=== PATIENT | female | born 1930 | race Hispanic/Latino ===

== ENCOUNTER 2017-09-22 08:28 | Observation (INO) | payer MEDICARE ==
[~2017-09-22] VITALS: Ht 154.9 cm; Wt 57.4 kg
[~2017-09-22 08:28] MED LIST: ACET-2900 PO; ALPR0.25 PO; ANUSHCS PR; ASPI-1005 PO; BENZ200C53 PO; BISA5TAB12 PO; BUDE10.2 IH; CLON0.1T PO; FOLI1TAB85 PO; FURO-152 PO; GABA100C PO; GUAIFDM PO; LACT10SO PO; LEVO500T2 PO; LISI-617 PO; MAALOX MAX PO; MECL-129 PO; MIRT7.5T11 PO; ONDA4TAB4 PO; POLY17PO4 PO; SIMV10TA6 PO; SUCR1TAB28 PO; WARF2TAB57 PO; vilazodone PO
[2017-09-22 09:39] LABS: BASOPHILS % (AUTO) 0.5 % (0.0-5.0); EOSINOPHILS % (AUTO) 6.7 % (0.0-8.0); HEMATOCRIT 36.7 % (36-48); LYMPHOCYTES % (AUTO) 21.7 % (21.0-51.0); MEAN CORPUSCULAR HEMOGLOBIN 21.8 pg (27.0-33.0); MEAN CORPUSCULAR HGB CONC 30.4 g/dL (32.0-36.0); MEAN CORPUSCULAR VOLUME 71.8 fL (79-99); MONOCYTES % (AUTO) 10.4 % (3.0-13.0); NEUTROPHILS % (AUTO) 60.7 % (40.0-77.0); PLATELET COUNT (AUTO) 260 K/uL (130-400); RED BLOOD CELL COUNT(AUTO) 5.11 MIL/uL (4.00-5.50); RED CELL DISTRIBUTION WIDTH 21.4 % (11.0-15.5); WHITE BLOOD COUNT (AUTO) 7.4 K/uL (4.8-10.8)
[2017-09-22 09:53] LABS: CREATININE 0.6 mg/dL (0.5-1.5); POTASSIUM 4.8 mmol/L (3.5-5.1)
[2017-09-22 10:08] LABS: ALBUMIN 3.1 g/dL (3.5-5.0); BILIRUBIN,TOTAL 0.3 mg/dL (0.2-1.0); CREATINE KINASE MB 1.3 ng/mL (0.5-3.6); TOTAL PROTEIN, SERUM 7.5 g/dL (6.0-8.3)
[2017-09-22] MEDS ORDERED: GUAIFENESIN-DM 200/20 MG 10 ML PO PRN (12:30)
[2017-09-22] MEDS ORDERED: ONDANSETRON HCL 4 MG/2 ML VIAL IV PRN (12:30)
[2017-09-22] MEDS ORDERED: LACTULOSE 20 GM/30 ML UDCUP PO PRN (12:30)
[2017-09-22] MEDS ORDERED: ACETAMINOPHEN 325 MG TAB PO PRN ×2 (12:30)
[2017-09-22 13:01] LABS: APPEARANCE,URINE CLEAR (CLEAR); BILIRUBIN,URINE NEGATIVE (NEGATIVE); COLOR,URINE YELLOW (YELLOW); GLUCOSE, URINE (UA) NEGATIVE (NEGATIVE); KETONES,URINE NEGATIVE (NEGATIVE); LEUKOCYTE ESTERASE ,URINE TRACE (NEGATIVE); NITRATE,URINE POSITIVE (NEGATIVE); OCCULT BLOOD,URINE TRACE-INTACT (NEGATIVE); PROTEIN,URINE NEGATIVE (NEGATIVE); UROBILINOGEN,URINE 0.2 mg/dL (0.2-1.0)
[2017-09-22 13:20] LABS: SQUAMOUS EPITHELIAL CELL,UR Few /LPF (0-2)
[2017-09-22 13:21] LABS: BACTERIA,URINE Moderate /HPF (None Seen); RBC,URINE 0-1 /HPF (0-1)
[2017-09-22] MEDS: IPRATROPIUM/ALBUTEROL SULFATE 3 ML SOLUTION IH SCH (18:14)
[2017-09-22 18:45] VITALS: BP 178/82
[2017-09-22 19:50] VITALS: BP 177/81
[2017-09-22] MEDS ORDERED: TRAM50TA4 PO (19:55)
[2017-09-22] MEDS ORDERED: CYCL30DR OP (19:55)
[2017-09-22] MEDS ORDERED: FAMO-136 PO (19:55)
[2017-09-22] MEDS ORDERED: TRAZ-144 PO (19:55)
[2017-09-22] MEDS ORDERED: BISA-72 PO (19:55)
[2017-09-22] MEDS ORDERED: FLUT1BLS IH (19:55)
[2017-09-22] MEDS ORDERED: DONE5TAB2 PO (19:55)
[2017-09-22] MEDS: FAMOTIDINE/PF 20 MG/2 ML VIAL IV SCH (20:57)
[2017-09-22] MEDS ORDERED: HYDRALAZINE HCL 20 MG/ML VIAL IV PRN (22:00)
[2017-09-22] MEDS ORDERED: HYDRALAZINE HCL 20 MG/ML VIAL IV ONE (22:05)
[2017-09-22] MEDS: LORAZEPAM 2 MG/ML 1 ML VIAL IVP PRN (22:09)
[2017-09-22 23:25] VITALS: BP 131/109
[2017-09-23] MEDS: IPRATROPIUM/ALBUTEROL SULFATE 3 ML SOLUTION IH SCH ×3 (00:23→11:53)
[2017-09-23 03:40] VITALS: BP 125/52
[2017-09-23] MEDS: LORAZEPAM 2 MG/ML 1 ML VIAL IVP PRN ×2 (03:56→09:43)
[2017-09-23 08:00] VITALS: BP 135/63
[2017-09-23] MEDS ORDERED: BISACODYL 5 MG TABLET.DR PO PRN (08:45)
[2017-09-23] MEDS ORDERED: ASPIRIN 81MG TAB.CHEW PO SCH (09:00)
[2017-09-23] MEDS ORDERED: BISACODYL 5 MG TABLET.DR PO SCH (09:00)
[2017-09-23] MEDS ORDERED: DONEPEZIL HCL 5 MG TAB PO SCH (09:00)
[2017-09-23] MEDS ORDERED: GABAPENTIN 100 MG CAPSULE PO SCH (09:00)
[2017-09-23] MEDS ORDERED: FUROSEMIDE 20 MG TABLET PO SCH (09:00)
[2017-09-23] MEDS ORDERED: FAMOTIDINE 20MG TAB 20 MG TAB PO SCH (09:00)
[2017-09-23] MEDS ORDERED: ALPRAZOLAM 0.25 MG TABLET PO SCH (09:00)
[2017-09-23] MEDS ORDERED: CYCLOSPORINE OP SCH (09:00)
[2017-09-23] MEDS: FAMOTIDINE/PF 20 MG/2 ML VIAL IV SCH ×2 (09:00→09:54)
[2017-09-23] MEDS ORDERED: BUDESONIDE 0.5 MG/2 ML INH IH SCH (18:00)
== END 2017-09-23 15:25 ==
LOC: EDH 08:28 → EDHIP 12:22 → 3DH 18:20
PROVIDERS: ADMIT Family Medicine; ATTEND Family Medicine
DX: J96.10 Chronic respiratory failure, unspecified whether with hypoxia or hypercapnia (principal); I13.10 Hypertensive heart and chronic kidney disease without heart failure, with stage 1 through stage 4 chronic kidney disease, or unspecified chronic kidney disease; N18.9 Chronic kidney disease, unspecified; E78.5 Hyperlipidemia, unspecified; D64.9 Anemia, unspecified; K21.9 Gastro-esophageal reflux disease without esophagitis; F03.90 Unspecified dementia, unspecified severity, without behavioral disturbance, psychotic disturbance, mood disturbance, and anxiety; Z86.718 Personal history of other venous thrombosis and embolism; Z86.73 Personal history of transient ischemic attack (TIA), and cerebral infarction without residual deficits; Z99.81 Dependence on supplemental oxygen
CPT/HCPCS: 36415; 71045; 78580; 80053; 81001; 82550; 82553; 84484; 85025; 93005; 93970; 94640 ×4; 94664; 96374; 96375; 96376; 99285; A9540 ×2; G0378 ×27; J0360; J2060 ×3; J3490 ×2

== ENCOUNTER 2018-01-10 18:24 | Emergency (ER) | payer MEDICARE ==
[~2018-01-10 18:24] MED LIST changes: +BISA-72 PO; -BUDE10.2 IH; +CYCL30DR OP; +DONE5TAB2 PO; +FAMO-136 PO; +FLUT1BLS IH; -LEVO500T2 PO; -MAALOX MAX PO; -MIRT7.5T11 PO; -SUCR1TAB28 PO; +TRAM50TA4 PO; +TRAZ-185 PO; -WARF2TAB57 PO; -vilazodone PO
[2018-01-10 19:21] LABS: BASOPHILS % (AUTO) 0.9 % (0.0-5.0); EOSINOPHILS % (AUTO) 6.1 % (0.0-8.0); HEMATOCRIT 31.9 % (36-48); LYMPHOCYTES % (AUTO) 22.7 % (21.0-51.0); MEAN CORPUSCULAR HEMOGLOBIN 23.2 pg (27.0-33.0); MEAN CORPUSCULAR HGB CONC 31.7 g/dL (32.0-36.0); MEAN CORPUSCULAR VOLUME 73.1 fL (79-99); MONOCYTES % (AUTO) 11.2 % (3.0-13.0); NEUTROPHILS % (AUTO) 59.1 % (40.0-77.0); NUCLEATED RED BLOOD CELLS 0.1 % (0.0-0.19); PLATELET COUNT (AUTO) 338 K/uL (130-400); RED BLOOD CELL COUNT(AUTO) 4.37 MIL/uL (4.00-5.50); RED CELL DISTRIBUTION WIDTH 19.1 % (11.0-15.5); WHITE BLOOD COUNT (AUTO) 6.1 K/uL (4.8-10.8)
[2018-01-10 19:35] LABS: APPEARANCE,URINE CLOUDY (CLEAR); BILIRUBIN,URINE NEGATIVE (NEGATIVE); COLOR,URINE YELLOW (YELLOW); GLUCOSE, URINE (UA) NEGATIVE (NEGATIVE); KETONES,URINE NEGATIVE (NEGATIVE); LEUKOCYTE ESTERASE ,URINE SMALL (NEGATIVE); NITRATE,URINE NEGATIVE (NEGATIVE); OCCULT BLOOD,URINE NEGATIVE (NEGATIVE); PROTEIN,URINE NEGATIVE (NEGATIVE); UROBILINOGEN,URINE 0.2 mg/dL (0.2-1.0)
[2018-01-10 19:42] LABS: POTASSIUM 4.2 mmol/L (3.5-5.1)
[2018-01-10 19:44] LABS: INR 0.95 (0.85-1.15); PARTIAL THROMBOPLASTIN TIME 24.7 SEC (26.3-35.5)
[2018-01-10 19:49] LABS: B-TYPE NATRIURETIC PEPTIDE 26 pg/mL (0-100)
[2018-01-10 19:58] LABS: RBC,URINE 0-1 /HPF (0-1)
[2018-01-10 20:00] LABS: BACTERIA,URINE Moderate /HPF (None Seen)
[2018-01-10 20:01] LABS: SQUAMOUS EPITHELIAL CELL,UR Rare /HPF (0-2)
[2018-01-10 20:10] LABS: ALBUMIN 3.2 g/dL (3.5-5.0); BILIRUBIN,DIRECT 0.1 mg/dL (0.0-0.3); BILIRUBIN,TOTAL 0.2 mg/dL (0.2-1.0); CREATINE KINASE MB 4.1 ng/mL (0.5-3.6); TOTAL PROTEIN, SERUM 7.1 g/dL (6.0-8.3)
[2018-01-10] MEDS ORDERED: SODIUM CHLORIDE 0.9% 50 ML IV ONE (21:06)
[2018-01-10] MEDS ORDERED: CEFTRIAXONE SODIUM 1 GM ONE (21:06)
== END 2018-01-11 01:00 | disposition home or self-care (01) ==
LOC: EDH 18:24
DX: N39.0 Urinary tract infection, site not specified (principal); I48.91 Unspecified atrial fibrillation; K21.9 Gastro-esophageal reflux disease without esophagitis; E78.5 Hyperlipidemia, unspecified
CPT/HCPCS: 36415; 71045; 80048; 80076; 81001; 82550; 82553; 83880; 84484; 85025; 85610; 85730; 93005; 96374; 99285; J0696

== ENCOUNTER 2018-09-10 09:38 | Inpatient (IN) | payer MEDICARE ==
[~2018-09-10] VITALS: Ht 144.8 cm; Wt 61.0 kg
[~2018-09-10 09:38] MED LIST changes: -DONE5TAB2 PO; +DONE5TAB3 PO
[2018-09-10] MEDS ORDERED: DEXAMETHASONE SOD PHOSPHATE 10MG/ML 1ML VIAL ONE (10:18)
[2018-09-10] MEDS ORDERED: IPRATROPIUM/ALBUTEROL SULFATE 3 ML SOLUTION IH ONE (10:21)
[2018-09-10] MEDS ORDERED: ACETAMINOPHEN 650 MG SUPPOSITORY RC ONE (10:25)
[2018-09-10 10:27] LABS: APPEARANCE,URINE Cloudy (CLEAR); BILIRUBIN,URINE Negative (NEGATIVE); COLOR,URINE Yellow (YELLOW); GLUCOSE, URINE (UA) Negative (NEGATIVE); KETONES,URINE Negative (NEGATIVE); LEUKOCYTE ESTERASE ,URINE Large (NEGATIVE); NITRATE,URINE Negative (NEGATIVE); OCCULT BLOOD,URINE Trace (NEGATIVE); PROTEIN,URINE POS 1+ (NEGATIVE)
[2018-09-10 10:39] LABS: BACTERIA,URINE Moderate /HPF (None Seen); HYALINE CASTS, URINE 0-1 /LPF (0-1 /LPF); RBC,URINE 0-1 /HPF (0-1); SQUAMOUS EPITHELIAL CELL,UR Few /HPF (0-2)
[2018-09-10 10:53] LABS: BASOPHILS % (AUTO) 0.4 % (0.0-5.0); EOSINOPHILS % (AUTO) 0.1 % (0.0-8.0); HEMATOCRIT 30.2 % (36-48); LYMPHOCYTES % (AUTO) 5.6 % (21.0-51.0); MEAN CORPUSCULAR HEMOGLOBIN 21.9 pg (27.0-33.0); MEAN CORPUSCULAR HGB CONC 30.4 g/dL (32.0-36.0); MONOCYTES % (AUTO) 10.3 % (3.0-13.0); NEUTROPHILS % (AUTO) 83.6 % (40.0-77.0); PLATELET COUNT (AUTO) 288 K/uL (130-400); RED CELL DISTRIBUTION WIDTH 22.8 % (11.0-15.5); WHITE BLOOD COUNT (AUTO) 9.2 K/uL (4.8-10.8)
[2018-09-10 11:01] LABS: CARBON DIOXIDE 34 mmol/L (21-32); CHLORIDE 101 mmol/L (101-111); CREATININE 1.2 mg/dL (0.5-1.5); GLOMERULAR FILTR. RATE CALC 45 mL/min (>60); GLUCOSE,RANDOM 152 mg/dL (70-105); POTASSIUM 4.4 mmol/L (3.5-5.1); SODIUM SERUM 141 mmol/L (136-145); UREA NITROGEN, BLOOD 18 mg/dL (7-18)
[2018-09-10 11:11] LABS: ALANINE AMINOTRANSFERASE 9 U/L (12-78); ALBUMIN 2.5 g/dL (3.5-5.0); ASPARTATE AMINOTRANSFERASE 28 U/L (10-37); BILIRUBIN,TOTAL 0.2 mg/dL (0.2-1.0); CREATINE KINASE, TOTAL 360 U/L (21-232); MYOGLOBIN 228 ng/mL (10-92); TOTAL PROTEIN, SERUM 8.2 g/dL (6.0-8.3); TROPONIN I < 0.04 ng/mL (0.00-0.06)
[2018-09-10 11:14] LABS: INR 1.02 (0.85-1.15); PARTIAL THROMBOPLASTIN TIME 30.3 SEC (26.3-35.5); PROTHROMBIN TIME 10.7 SEC (9.6-11.6)
[2018-09-10] MEDS ORDERED: LEVOFLOXACIN 500 MG/D5W 100 ML 100 ML ONE (11:15)
[2018-09-10] MEDS ORDERED: ENOXAPARIN SODIUM 40 MG/0.4 ML SYRINGE SQ ONE (11:41)
[2018-09-10] MEDS ORDERED: ONDANSETRON HCL 4 MG/2 ML VIAL IVP PRN ×2 (12:00→16:00)
[2018-09-10] MEDS ORDERED: SODIUM CHLORIDE 0.9% 100 ML IV ONE (13:46)
[2018-09-10] MEDS ORDERED: ZOSYN 3.375GM+NS 50ML 50 ML IV ONE (13:46)
[2018-09-10] MEDS ORDERED: IPRATROPIUM/ALBUTEROL SULFATE 3 ML SOLUTION IH SCH (14:00)
[2018-09-10] MEDS: LACTATED RINGERS 1000ML 1,000 ML IV SCH (16:00)
[2018-09-10] MEDS ORDERED: ACETAMINOPHEN 650 MG SUPPOSITORY RC PRN (16:00)
[2018-09-10] MEDS ORDERED: ACETAMINOPHEN 325 MG TAB PO PRN (16:00)
[2018-09-10] MEDS ORDERED: VANCOMYCIN PROTOCOL PER PHARMACY IV SCH (16:00)
[2018-09-10] MEDS: METHYLPREDNISOLONE SOD SUCC 40MG/ML 1ML IVP SCH (16:00)
[2018-09-10] MEDS ORDERED: MAGNESIUM 2GM PREMIX 50ML 50 ML IV PRN (16:15)
[2018-09-10] MEDS ORDERED: LIDOCAINE HCL-MPF 1% 2ML VIAL IVP PRN (16:15)
[2018-09-10] MEDS ORDERED: DEXTROSE 50%-WATER 50 ML DISP.SYRIN IV PRN (16:15)
[2018-09-10] MEDS ORDERED: GLUCAGON 1MG KIT 1 MG ML IM PRN (16:15)
[2018-09-10] MEDS ORDERED: POTASSIUM CHLORIDE 20MEQ/100ML 100 ML IV PRN (16:15)
[2018-09-10] MEDS ORDERED: VANCOMYCIN 1GM+NS 250ML 250 ML IV ONE (16:43)
[2018-09-10] MEDS ORDERED: METHYLPREDNISOLONE SOD SUCC 40MG/ML 1ML ONE (16:43)
[2018-09-10] MEDS ORDERED: LACTATED RINGERS 1000ML 1,000 ML IV ONE (18:02)
[2018-09-10] MEDS ORDERED: COMPOUND IV REFRIGERATED 1 EACH IVSOLN MISC PRN (18:15)
[2018-09-10] MEDS: IPRATROPIUM/ALBUTEROL SULFATE 3 ML SOLUTION IH SCH (18:57)
[2018-09-10] MEDS: ZOSYN 3.375GM+NS 50ML 50 ML IV SCH (21:00)
[2018-09-10] MEDS: OSELTAMIVIR PHOSPHATE 75 MG CAP PO SCH (21:00)
[2018-09-10] MEDS ORDERED: OSELTAMIVIR PHOSPHATE 75 MG CAP ONE (21:43)
[2018-09-10 21:49] LABS: CREATINE KINASE, TOTAL 302 U/L (21-232); MYOGLOBIN 234 ng/mL (10-92); TROPONIN I < 0.04 ng/mL (0.00-0.06)
[2018-09-10 22:47] VITALS: BP 96/44
[2018-09-10] MEDS ORDERED: MIRT15TA PO (23:33)
[2018-09-10] MEDS ORDERED: LACT10SO9 PO (23:33)
[2018-09-10] MEDS ORDERED: IPRA3AMP24 IH (23:33)
[2018-09-10] MEDS ORDERED: ALPR1TAB7 PO (23:33)
[2018-09-10 23:45] VITALS: BP 96/44
[2018-09-11] MEDS: IPRATROPIUM/ALBUTEROL SULFATE 3 ML SOLUTION IH SCH ×5 (00:11→23:24)
[2018-09-11 00:40] LABS: CREATINE KINASE, TOTAL 392 U/L (21-232); MYOGLOBIN 370 ng/mL (10-92); TROPONIN I < 0.04 ng/mL (0.00-0.06)
[2018-09-11] MEDS: METHYLPREDNISOLONE SOD SUCC 40MG/ML 1ML IVP SCH ×3 (01:00→16:00)
[2018-09-11 03:53] LABS: BASOPHILS % (AUTO) 0.1 % (0.0-5.0); HEMATOCRIT 24.1 % (36-48); LYMPHOCYTES % (AUTO) 13.5 % (21.0-51.0); MEAN CORPUSCULAR HEMOGLOBIN 21.9 pg (27.0-33.0); MEAN CORPUSCULAR HGB CONC 30.7 g/dL (32.0-36.0); MEAN CORPUSCULAR VOLUME 71.4 fL (79-99); MONOCYTES % (AUTO) 3.5 % (3.0-13.0); NEUTROPHILS % (AUTO) 82.9 % (40.0-77.0); PLATELET COUNT (AUTO) 282 K/uL (130-400); RED BLOOD CELL COUNT(AUTO) 3.38 MIL/uL (4.00-5.50); RED CELL DISTRIBUTION WIDTH 22.9 % (11.0-15.5); WHITE BLOOD COUNT (AUTO) 9.2 K/uL (4.8-10.8)
[2018-09-11 04:01] LABS: ALBUMIN 1.9 g/dL (3.5-5.0); BILIRUBIN,TOTAL 0.1 mg/dL (0.2-1.0); CREATININE 1.2 mg/dL (0.5-1.5); MAGNESIUM 1.8 mg/dL (1.80-2.40); PHOSPHORUS 3.2 mg/dL (2.5-4.9); POTASSIUM 3.9 mmol/L (3.5-5.1); TOTAL PROTEIN, SERUM 6.6 g/dL (6.0-8.3)
[2018-09-11] MEDS: ZOSYN 3.375GM+NS 50ML 50 ML IV SCH ×3 (04:13→21:24)
[2018-09-11 04:15] LABS: B-TYPE NATRIURETIC PEPTIDE 61 pg/mL (0-100)
[2018-09-11 04:20] VITALS: BP 132/70
[2018-09-11] MEDS: LACTATED RINGERS 1000ML 1,000 ML IV SCH ×2 (06:08→18:40)
[2018-09-11 07:00] VITALS: BP 111/50
[2018-09-11 08:34] LABS: CREATINE KINASE, TOTAL 263 U/L (21-232); MYOGLOBIN 165 ng/mL (10-92); TROPONIN I < 0.04 ng/mL (0.00-0.06)
[2018-09-11] MEDS: ENOXAPARIN SODIUM 40 MG/0.4 ML SYRINGE SQ SCH ×2 (09:00→13:54)
[2018-09-11 11:00] VITALS: BP 111/46
--- NOTE | 2018-09-11 12:14 | NUR ---
DYSPHAGIA EVAL COMPLETED. +S/S OF ASPIRATION WITH THIN AND NECTAR-THICK LIQUIDS. RECOMMEND MECHANICAL SOFT/GROUND, HONEY-THICK LIQUIDS; PILLS WHOLE WITH LIQUIDS. PATIENT INFORMATION: Pt IS AN 87 YEAR OLD FEMALE REFERRED FOR A BEDSIDE DYSPHAGIA EVALUATION SECONDARY TO POSSIBLE ASPIRATION. Pt AAOX2 AND COOPERATIVE. SON AT BEDSIDE AT THE TIME OF THE EVALUATION. SON REPORTS Pt WAS PREVIOUSLY ON THICKENER AT THE [facility]. Pt CURRENTLY ADMITTED SECONDARY TO UTI, SEPSIS, ALTERED MENTAL STATUS, AND HOSPITAL ACQUIRED PNEUMONIA. Pt HAS A PAST MEDICAL HISTORY SIGNIFICANT FOR DEMENTIA, HYPERTENSION, UTI, PNEUMONIA, DEPRESSION, CVA, CHRONIC HYPOXEMIC RESPIRATORY FAILURE ON HOME O2 AND CHRONIC KIDNEY DISEASE. EVALUATION: Pt PRESENTS WITH MILD ORAL AND MODERATE-SEVERE PHARYNGEAL DYSPHAGIA CAUSED BY DECREASED ORAL MOTOR STRENGTH, DECREASED LARYNGEAL ELEVATION/EXCURSION, DELAYED PHARYNGEAL RESPONSE TIME, DECREASED PHARYNGEAL PRESSURE GENERATION, E/B DECREASED ROTARY MOTION DURING MASTICATION, MILD RESIDE IN ORAL CAVITY, MULTIPLE SWALLOWS, EFFORTFUL SWALLOW, RESULTING IN S/S OF ASPIRATION OF DELAYED COUGH WITH THIN LIQUIDS AND NECTAR-THICK LIQUIDS. RECOMMENDATIONS: 1. MECHANICAL SOFT/GROUND, HONEY-THICK LIQUIDS; PILLS WHOLE WITH LIQUIDS. 2. COMPENSATORY STRATEGIES: *SEATED AT 90 DEGREES *SLOW RATE *ASSIST WITH FEEDINGS 3. CONTINUED SKILLED SPEECH THERAPY IS RECOMMENDED FOR MEAL OBSERVATIONS. LTG1: Pt WILL TOLERATE LEAST RESTRICTIVE DIET AND MAINTAIN NUTRITION/HYDRATION WITH NO S/S OF ASPIRATION. STG1: Pt WILL TOLERATE MECHANICAL SOFT/GROUND, HONEY-THICK LIQUIDS DIET WITH NO S/S OF ASPIRATION. STG2: Pt/FAMILY/STAFF WITH USE COMPENSATORY STRATEGIES WITH 100% ACCURACY. STG3: Pt WILL PARTICIPATE IN MBSS. G-CODES SWALLOWING: [id number] Addendum: 09/11/18 at 1236 by JT STERLING, [facility] Amended: Links added.
[2018-09-11 16:00] VITALS: BP 157/68
[2018-09-11] MEDS: VANCOMYCIN 0.75 GM in SODIUM CHLORIDE 0.9% 250 ML IV SCH (16:58)
[2018-09-11 19:00] VITALS: BP 107/51
--- NOTE | 2018-09-11 19:30 | NUR ---
Received bedside report pt. is on droplet precaution with ongoing LR @ 75ml/hr.Pt. is also on Fall and aspiration precaution.
[2018-09-11] MEDS: OSELTAMIVIR PHOSPHATE 75 MG CAP PO SCH (21:24)
[2018-09-11 23:00] VITALS: BP 119/86
[2018-09-12] MEDS: METHYLPREDNISOLONE SOD SUCC 40MG/ML 1ML IVP SCH ×2 (00:34→23:23)
[2018-09-12 03:00] VITALS: BP 143/67
[2018-09-12 04:46] LABS: HEMATOCRIT 25.8 % (36-48); MEAN CORPUSCULAR VOLUME 70.8 fL (79-99); PLATELET COUNT (AUTO) 338 K/uL (130-400); RED BLOOD CELL COUNT(AUTO) 3.64 MIL/uL (4.00-5.50); RED CELL DISTRIBUTION WIDTH 22.7 % (11.0-15.5); WHITE BLOOD COUNT (AUTO) 10.8 K/uL (4.8-10.8)
[2018-09-12 04:57] LABS: CREATININE 1.2 mg/dL (0.5-1.5); MAGNESIUM 1.8 mg/dL (1.80-2.40)
[2018-09-12] MEDS: ZOSYN 3.375GM+NS 50ML 50 ML IV SCH ×2 (05:25→21:08)
[2018-09-12] MEDS: IPRATROPIUM/ALBUTEROL SULFATE 3 ML SOLUTION IH SCH ×4 (05:55→22:57)
--- NOTE | 2018-09-12 07:52 | NUR ---
Bedside report given to incoming NOD using SBAR,all questions answered.No significant change in condition.
[2018-09-12 08:13] VITALS: BP 143/68
[2018-09-12] MEDS: ENOXAPARIN SODIUM 40 MG/0.4 ML SYRINGE SQ SCH ×2 (09:00)
--- NOTE | 2018-09-12 11:29 | NUR ---
DC PLAN PATIENT INTERMEDIATE RESIDENT OF [facility]. CONSENT GIVEN TO RETURN TO FACILITY. CALLED SPOKE TO HARDIK SENDY OKAY TO RETURN NO PASRR NEEDED. Addendum: 09/12/18 at 1130 by LESLEY MOHR RN CM Amended: Links added.
[2018-09-12 12:05] VITALS: BP 133/76
[2018-09-12] MEDS: VANCOMYCIN 0.75 GM in SODIUM CHLORIDE 0.9% 250 ML IV SCH (16:00)
[2018-09-12 16:45] VITALS: BP 163/73
[2018-09-12 19:44] VITALS: BP 166/75
[2018-09-12] MEDS: OSELTAMIVIR PHOSPHATE 75 MG CAP PO SCH (21:09)
--- NOTE | 2018-09-12 22:27 | NUR ---
CALLED MARINE TECH. AND NOTIFIED HIM OF CHANGE OF STATUS. DECREASING IN OXYGEN LEVEL AND INCREASED SECRETIONS.
--- NOTE | 2018-09-12 22:30 | NUR ---
CALLED SON JEFFERSON KRUSE RELATING TO PT CHANGE IN STATUS. SHE WAS DECREASING IN OXYGEN LEVEL AND HAVING INCREASED HEART RATE. NOTIFED SON. HE STATED TO UPDATE HIM WITH ANY OTHER STATUS CHANGES.
--- NOTE | 2018-09-12 22:45 | NUR ---
PT REQUESTING FOR SON TO COME IN TO SEE HER HILLARY. CALLED SON AGAIN, AND NOTIFIED HIM OF PT REQUEST. UPDATED HIM ON HER STATUS. STABLE AT THE MOMENT. INCREASED OXYGEN LEVEL. AND WILL BE PLACED ON BIPAP MACHINE.
[2018-09-12 23:00] VITALS: BP 124/89
[2018-09-13] VITALS (8 sets, daily range): BP systolic 67–108; BP diastolic 24–56
--- NOTE | 2018-09-13 03:30 | NUR ---
PAGED DR. CARLSON RELATING TO PT STATUS CHANGE. BP 73/24, HR 133, AND RESP 30'S. T99.7 AXILIARY. REP DISTRESS NOTED, SO WAS PLACED ON BIPAP EARLIER. SON AWARE. CAME TO VISIT PT. DR. Hobson STATED IF PT WAS RESTLESS TO ADMINISTER ATIVAN 2MG IV PUSH PRN.
--- NOTE | 2018-09-13 03:33 | NUR ---
PAGED [employer]. SPOKE TO AMBER BEST ABOUT PT STATUS CHANGE. BP 73/24. HR 120-130. RESP 30'S. INFORMED OF BIPAP PLACEMENT. AMBER ASKED IF FAMILLY AWARE. STATES YES, AND THAT SON JEFFERSON CAME IN TO SEE HIS MOTHER. SHE WAS STABLE DURING HIS TIME HERE. NEW ORDERS FOR STAT CBC,BMP, BNP, AND CXR.
[2018-09-13] MEDS ORDERED: LORAZEPAM 2 MG/ML 1 ML VIAL ONE (03:43)
[2018-09-13] MEDS ORDERED: LORAZEPAM 2 MG/ML 1 ML VIAL IVP PRN (03:45)
[2018-09-13 04:42] LABS: BASOPHILS % (AUTO) 0.3 % (0.0-5.0); EOSINOPHILS % (AUTO) 0.1 % (0.0-8.0); HEMATOCRIT 28.5 % (36-48); LYMPHOCYTES % (AUTO) 1.5 % (21.0-51.0); MEAN CORPUSCULAR HEMOGLOBIN 21.5 pg (27.0-33.0); MEAN CORPUSCULAR HGB CONC 29.8 g/dL (32.0-36.0); MEAN CORPUSCULAR VOLUME 72.2 fL (79-99); MONOCYTES % (AUTO) 7.5 % (3.0-13.0); NEUTROPHILS % (AUTO) 90.6 % (40.0-77.0); NUCLEATED RED BLOOD CELLS 1.1 % (0.0-0.19); PLATELET COUNT (AUTO) 438 K/uL (130-400); RED BLOOD CELL COUNT(AUTO) 3.94 MIL/uL (4.00-5.50); RED CELL DISTRIBUTION WIDTH 22.9 % (11.0-15.5); WHITE BLOOD COUNT (AUTO) 12.9 K/uL (4.8-10.8)
[2018-09-13 04:53] LABS: CREATININE 1.6 mg/dL (0.5-1.5); POTASSIUM 4.6 mmol/L (3.5-5.1)
[2018-09-13] MEDS: ZOSYN 3.375GM+NS 50ML 50 ML IV SCH (05:39)
[2018-09-13] MEDS: IPRATROPIUM/ALBUTEROL SULFATE 3 ML SOLUTION IH SCH ×4 (06:24→23:34)
[2018-09-13] MEDS: ENOXAPARIN SODIUM 40 MG/0.4 ML SYRINGE SQ SCH ×2 (08:46→08:49)
[2018-09-13] MEDS: METHYLPREDNISOLONE SOD SUCC 40MG/ML 1ML IVP SCH ×2 (08:49→16:55)
[2018-09-13 13:52] LABS: ABG BASE EXCESS 1.6 mmol/L (-2.0-3.0); ABG HCO3 29.8 mmol/L (21.0-28.0); ABG OXYGEN SATURATION 98.6 % (95.0-99.0); ABG PCO2 62 mmHg (32-45)
[2018-09-13] MEDS: MEROPENEM 1 GM VIAL IVP SCH (15:08)
--- NOTE | 2018-09-13 16:30 | NUR ---
Nutrition intervention: Nutrition notification for TF recommendations. Pt admitted for UTI,Sepsis currently on regular diet therapy. S/p PACKAGING DESIGNER evaluation with HTL and mechanical ground texture recommendations. As per pt's nurse, pt with poor po intake d/t confusion and poor awareness. Recommendations: Jevity 1.5 @ 35ml/hr, 135ml Q4H. RD to continue monitoring pt's nutritional status for continued intervention. Please consult RD as additional nutrition concerns arise. Addendum: 09/13/18 at [address] Amended: Links added.
[2018-09-13] MEDS ORDERED: VANCOMYCIN 1GM+NS 250ML 250 ML IV SCH (17:00)
--- NOTE | 2018-09-13 17:00 | NUR ---
Nasogastric tube 16 kiswahili inserted. Patient removed and stated did not want nasogastric tube inserted. Son aware and in agreement.
--- NOTE | 2018-09-13 21:00 | NUR ---
PT HAS SHOWN IMPROVEMENT SINCE LAST NIGHT. SHE APPEARS STABLE, NO RESP DISTRESS NOTED. CONTINUES ON BIPAP. NO RESTLESSNESS NOTED. NEW IV TO RIGHT HAND. CONTINUES ON IV ABTS. PULLED OUT NG TUBE EARLIER. WILL NOT BE REINSERTING. SON AWARE. CRACKLES BILATERALLY. UPPER AND LOWER LOBES. HYPOTENSION NOTED. DOCTORS ARE AWARE. Addendum: 09/13/18 at 9204 by MILES CHAPA RN RN PT IS EDEMATOUS. IS ABLE TO TAKE MEDICATIONS WITH SMALL AMOUNT OF APPLESAUCE AND CRUSHED. THICKENED WATER.
[2018-09-13] MEDS: OSELTAMIVIR PHOSPHATE 75 MG CAP PO SCH (21:25)
[2018-09-14] MEDS: MEROPENEM 1 GM VIAL IVP SCH ×2 (00:26→13:31)
[2018-09-14] MEDS: METHYLPREDNISOLONE SOD SUCC 40MG/ML 1ML IVP SCH ×4 (00:26→23:56)
[2018-09-14 03:35] VITALS: BP 98/54
--- NOTE | 2018-09-14 03:43 | NUR ---
PT STABLE, BP HAS BEEN AT 90/50'S. BIPAP IN PLACE. NO DISTRESS NOTED.
[2018-09-14 03:51] LABS: BASOPHILS % (AUTO) 0.3 % (0.0-5.0); HEMATOCRIT 25.7 % (36-48); LYMPHOCYTES % (AUTO) 14.7 % (21.0-51.0); MEAN CORPUSCULAR HEMOGLOBIN 21.9 pg (27.0-33.0); MEAN CORPUSCULAR HGB CONC 30.2 g/dL (32.0-36.0); MEAN CORPUSCULAR VOLUME 72.5 fL (79-99); MONOCYTES % (AUTO) 5.2 % (3.0-13.0); NEUTROPHILS % (AUTO) 79.8 % (40.0-77.0); NUCLEATED RED BLOOD CELLS 0.1 % (0.0-0.19); PLATELET COUNT (AUTO) 332 K/uL (130-400); RED BLOOD CELL COUNT(AUTO) 3.55 MIL/uL (4.00-5.50); RED CELL DISTRIBUTION WIDTH 23.3 % (11.0-15.5); WHITE BLOOD COUNT (AUTO) 8.5 K/uL (4.8-10.8)
[2018-09-14 04:01] LABS: CREATININE 3.2 mg/dL (0.5-1.5); POTASSIUM 4.4 mmol/L (3.5-5.1)
[2018-09-14] MEDS: IPRATROPIUM/ALBUTEROL SULFATE 3 ML SOLUTION IH SCH ×4 (06:29→23:05)
[2018-09-14 08:02] VITALS: BP 106/63
--- NOTE | 2018-09-14 09:10 | NUR ---
THERAPEUTIC TRIALS COMPLETED. Pt RAISED TO 90 DEGREES IN BED. Pt PARTICIPATED IN THERAPEUTIC TRIALS OF PUREED AND HONEY-THICK CONSISTENCY. Pt WITH MILDLY DELAYED PHARYNGEAL RESPONSE TRIGGER WITH NO S/S OF ASPIRATION. PER NURSE AID Pt TOLERATED BREAKFAST. RECOMMEND CONTINUED PUREED, HONEY-TICK LIQUIDS. SON ENTERED ROOM AT THE END OF THE SESSION. CHIEF STRATEGY OFFICER REVIEWED SAFE SWALLOW PRECAUTIONS. ALL QUESTIONS ANSWERED AT THIS TIME. Addendum: 09/14/18 at 1214 by JT STERLING, [facility] Amended: Links added.
[2018-09-14] MEDS: ENOXAPARIN SODIUM 40 MG/0.4 ML SYRINGE SQ SCH (10:05)
[2018-09-14 11:56] VITALS: BP 105/67
[2018-09-14] MEDS ORDERED: LINEZOLID 600 MG/ISO-OSM 300 ML IV SCH (13:15)
--- NOTE | 2018-09-14 13:58 | NUR ---
DR. CARLSON IN ROOM SPEAKING WITH PT.'S SON AT BEDSIDE EXPLAINING PLAN OF CARE AND ANSWERING QUESTIONS.
[2018-09-14] MEDS ORDERED: PHARMACY COMMUNICATION MISC SCH (14:00)
[2018-09-14] MEDS ORDERED: MEROPENEM 1 GM VIAL IVP SCH (14:04)
[2018-09-14] MEDS: MEROPENEM 500 MG VIAL IVP SCH (14:15)
[2018-09-14] MEDS ORDERED: OSELTAMIVIR PHOSPHATE 75 MG CAP PO SCH (14:15)
[2018-09-14] MEDS: LINEZOLID 600 MG/ISO-OSM 300 ML IV SCH (16:38)
[2018-09-14 16:50] VITALS: BP 133/59
[2018-09-14] MEDS: ACETAMINOPHEN 325 MG TAB PO PRN (18:16)
[2018-09-14] MEDS ORDERED: TRAMADOL HCL 50 MG TABLET PO PRN (18:30)
[2018-09-14 19:43] VITALS: BP 108/54
[2018-09-14 23:45] VITALS: BP 129/44
[2018-09-15 03:17] VITALS: BP 105/51
[2018-09-15] MEDS: LINEZOLID 600 MG/ISO-OSM 300 ML IV SCH ×2 (03:59→14:26)
[2018-09-15 07:00] VITALS: BP 127/65
[2018-09-15] MEDS: IPRATROPIUM/ALBUTEROL SULFATE 3 ML SOLUTION IH SCH ×4 (07:50→23:30)
[2018-09-15] MEDS: METHYLPREDNISOLONE SOD SUCC 40MG/ML 1ML IVP SCH ×3 (08:28→23:28)
[2018-09-15] MEDS: ENOXAPARIN SODIUM 40 MG/0.4 ML SYRINGE SQ SCH (08:29)
[2018-09-15 11:00] VITALS: BP 164/70
--- NOTE | 2018-09-15 11:05 | NUR ---
DR. AGRAWAL IN ROOM ASSESSING PT. AND SPEAKING WITH PT.'S SON RE:PLAN OF CARE. QUESTIONS ANSWERED BY DR. AGRAWAL.
[2018-09-15] MEDS ORDERED: COMPOUND PO MISCELLANEOUS 1 EACH MISC MISC PRN (11:45)
[2018-09-15] MEDS: MEROPENEM 500 MG VIAL IVP SCH (14:27)
[2018-09-15 16:00] VITALS: BP 133/74
--- NOTE | 2018-09-15 16:05 | NUR ---
RE-PAGED DR. Ed GOODSON, PER ANSWERING SERVICE, TO NOTIFY OF CONSULT. AWAITING RESPONSE.
--- NOTE | 2018-09-15 16:09 | NUR ---
REPORT TO ALONSO CIFUENTES.
--- NOTE | 2018-09-15 16:20 | NUR ---
TRANSFERRED TO ROOM 323 VIA BED WITH BELONGINGS ACCOMPANIED BY THIS NURSE AND PT.'S SON.
[2018-09-15] MEDS: ACETAMINOPHEN 325 MG TAB PO PRN (18:40)
[2018-09-15 19:10] VITALS: BP 119/89
[2018-09-15] MEDS ORDERED: OSELTAMIVIR PHOSPHATE 75 MG CAP PO SCH (21:00)
[2018-09-15] MEDS: OSELTAMIVIR SUSP 15 MG/ML (6 CAPS/29ML) PO SCH ×2 (22:53)
[2018-09-15 23:10] VITALS: BP 127/60
[2018-09-16] MEDS: LINEZOLID 600 MG/ISO-OSM 300 ML IV SCH ×2 (02:15→14:21)
[2018-09-16 03:10] VITALS: BP 117/55
[2018-09-16 06:10] LABS: HEMATOCRIT 27.9 % (36-48); MEAN CORPUSCULAR HEMOGLOBIN 21.1 pg (27.0-33.0); NUCLEATED RED BLOOD CELLS 0.6 % (0.0-0.19); PLATELET COUNT (AUTO) 439 K/uL (130-400); RED CELL DISTRIBUTION WIDTH 22.5 % (11.0-15.5); WHITE BLOOD COUNT (AUTO) 8.8 K/uL (4.8-10.8)
[2018-09-16 06:28] LABS: BILIRUBIN,TOTAL 0.3 mg/dL (0.2-1.0); MAGNESIUM 1.9 mg/dL (1.80-2.40); POTASSIUM 4.1 mmol/L (3.5-5.1); TOTAL PROTEIN, SERUM 6.1 g/dL (6.0-8.3)
[2018-09-16] MEDS: METHYLPREDNISOLONE SOD SUCC 40MG/ML 1ML IVP SCH ×3 (06:49→23:35)
[2018-09-16] MEDS: IPRATROPIUM/ALBUTEROL SULFATE 3 ML SOLUTION IH SCH ×4 (07:15→23:07)
[2018-09-16 07:30] VITALS: BP 125/64
[2018-09-16] MEDS: ENOXAPARIN SODIUM 40 MG/0.4 ML SYRINGE SQ SCH (10:45)
[2018-09-16 11:00] VITALS: BP 129/65
--- NOTE | 2018-09-16 12:29 | NUR ---
DR. GOODSON Notified front office spec of consult. Stated he will see patient later.
[2018-09-16] MEDS: MEROPENEM 500 MG VIAL IVP SCH (14:21)
[2018-09-16 16:00] VITALS: BP 123/57
[2018-09-16] MEDS ORDERED: SODIUM CHLORIDE 0.9% 1000ML 1,000 ML IV SCH (18:45)
[2018-09-16 19:20] VITALS: BP 110/58
[2018-09-16] MEDS: OSELTAMIVIR SUSP 15 MG/ML (6 CAPS/29ML) PO SCH ×2 (22:48)
[2018-09-16 23:20] VITALS: BP 116/57
[2018-09-17] MEDS: LINEZOLID 600 MG/ISO-OSM 300 ML IV SCH ×2 (02:08→14:50)
[2018-09-17 03:20] VITALS: BP 129/65
[2018-09-17 06:18] LABS: CREATININE 6.6 mg/dL (0.5-1.5); MAGNESIUM 1.8 mg/dL (1.80-2.40); PHOSPHORUS 4.7 mg/dL (2.5-4.9); POTASSIUM 3.8 mmol/L (3.5-5.1)
[2018-09-17] MEDS: IPRATROPIUM/ALBUTEROL SULFATE 3 ML SOLUTION IH SCH ×4 (07:22→22:48)
[2018-09-17 07:30] VITALS: BP 120/61
[2018-09-17] MEDS ORDERED: ENOXAPARIN SODIUM 40 MG/0.4 ML SYRINGE SQ SCH (09:00)
[2018-09-17] MEDS: ACETAMINOPHEN 325 MG TAB PO PRN (10:16)
[2018-09-17] MEDS: METHYLPREDNISOLONE SOD SUCC 40MG/ML 1ML IVP SCH (10:33)
[2018-09-17 11:00] VITALS: BP 123/61
--- NOTE | 2018-09-17 14:38 | NUR ---
[facility] CONSULT PATIENT ASSESSED ORDERED: PATIENT PRESENTS WITH DTI TO LEFT BUTTOCK AND SKIN TEAR TO LT FOREARM (OPSITE INTACT); [facility] RECOMMENDATIONS SUBMITTED. Addendum: 09/17/18 at 1440 by COLLEEN ARZOLA LVN Amended: Links added.
[2018-09-17] MEDS ORDERED: MORPHINE SULFATE 2 MG/ML 1ML SYG IVP SCH (14:45)
[2018-09-17] MEDS: MEROPENEM 500 MG VIAL IVP SCH (14:50)
[2018-09-17 16:00] VITALS: BP 139/71
--- NOTE | 2018-09-17 17:30 | NUR ---
Dr Swartz Sw met with son and daughter in law. Dr Archuleta had discussed Dr Swartz consult with them and they are in agreement. Dr Swartz to meet with family at 9am
[2018-09-17] MEDS: PREDNISONE 10 MG TABLET PO SCH (17:50)
[2018-09-17 19:05] VITALS: BP 115/74
[2018-09-17] MEDS: OSELTAMIVIR SUSP 15 MG/ML (6 CAPS/29ML) PO SCH ×2 (22:15)
[2018-09-18 00:02] VITALS: BP 132/71
[2018-09-18] MEDS: LINEZOLID 600 MG/ISO-OSM 300 ML IV SCH (01:08)
[2018-09-18 04:15] VITALS: BP 119/59
[2018-09-18 06:16] LABS: HEMATOCRIT 28.8 % (36-48); MEAN CORPUSCULAR HEMOGLOBIN 21.1 pg (27.0-33.0); MEAN CORPUSCULAR HGB CONC 30.4 g/dL (32.0-36.0); MEAN CORPUSCULAR VOLUME 69.5 fL (79-99); NUCLEATED RED BLOOD CELLS 0.2 % (0.0-0.19); PLATELET COUNT (AUTO) 425 K/uL (130-400); RED BLOOD CELL COUNT(AUTO) 4.14 MIL/uL (4.00-5.50); RED CELL DISTRIBUTION WIDTH 22.9 % (11.0-15.5); WHITE BLOOD COUNT (AUTO) 11.3 K/uL (4.8-10.8)
[2018-09-18 06:29] LABS: BILIRUBIN,TOTAL 0.4 mg/dL (0.2-1.0); CREATININE 7.2 mg/dL (0.5-1.5); MAGNESIUM 1.7 mg/dL (1.80-2.40); TOTAL PROTEIN, SERUM 5.6 g/dL (6.0-8.3)
[2018-09-18] MEDS: IPRATROPIUM/ALBUTEROL SULFATE 3 ML SOLUTION IH SCH ×2 (07:03→11:43)
[2018-09-18] MEDS ORDERED: SODIUM CHLORIDE 3% FOR INHALATION 4 ML/AMP VIAL.NEB IH ONE (07:20)
[2018-09-18 09:03] VITALS: BP 143/70
--- NOTE | 2018-09-18 09:25 | NUR ---
DR WHITEHEAD IS HERE TO TALK TO THE FAMILY AT THE BEDSIDE ABOUT THE PATIENT CONDITION , PLAN OF CARE AND DISCHARGE PLANNING.
--- NOTE | 2018-09-18 10:19 | NUR ---
DIET TEXTURE CHANGED TO PUREE PER LABORATORY ANIMAL FACILITY SUPERVISOR RECOMMENDATIONS. RD TO SPEAK TO FAMILY ABOUT DIET CHANGE.
--- NOTE | 2018-09-18 10:29 | NUR ---
Dr Swartz/ [facility] [place] met with pt and family and discussed current condition and options. Family is in agreement with returning to [facility] with [facility] and allowing pt to pass naturally. Son signed consent for referral back to [facility] and [facility] and OOHDNR. Ana spoke to Arcelia at [facility] and informed of above. Ana spoke to Mey at [facility] and informed of above. Mey on her way to meet with son Mehran. Pt info faxed to [facility]
[2018-09-18] MEDS ORDERED: ALBUTEROL SULFATE 0.083% 2.5 MG/3 ML INH IH ONE (10:43)
[2018-09-18] MEDS ORDERED: IPRATROPIUM 0.5 MG/2.5 ML INH IH ONE (10:44)
[2018-09-18] MEDS: PREDNISONE 10 MG TABLET PO SCH (11:13)
--- NOTE | 2018-09-18 12:03 | NUR ---
CM Note: HNR acceptance, EMS arranged and faxed, pending [facility] approval. Spoke to Dena w/HNR, pt has reacceptance will cont w/long-term, aware pending [facility] approval. Pt will transfer via EMS once approved. EMS arranged and faxed. Primary nurse aware. CM to cont to follow up.
--- NOTE | 2018-09-18 14:20 | NUR ---
REPORT CALLED TO TJ AKINS AT [facility].
--- NOTE | 2018-09-18 14:49 | NUR ---
REPORT CALLED TO TOM TIWARI LVN, AT [facility] AND EMS WAS NOTIFIED FOR TRANSPORT PICK-UP.
--- NOTE | 2018-09-18 16:00 | NUR ---
PATIENT LEFT THE UNIT VIA EMS STRETCHER. SPOUSE WAS PRESENT DURING PICK-UP AND HE HAD RECEIVED THE DISCHARGE INFORMATION.
== END 2018-09-18 16:00 | disposition hospice, inpatient (51) | DRG 871 ==
LOC: EDH 09:38 → EDHIP 11:13 → 2DH 22:07 → 3DH 09-15 17:33
PROVIDERS: ADMIT Internal Medicine Infectious Disease; ATTEND Internal Medicine Infectious Disease
PROC: 5A09357 Assistance with Respiratory Ventilation, Less than 24 Consecutive Hours, Continuous Positive Airway Pressure (ICD-10-PCS; principal; 2018-09-11)
PROC: 5A09357 Assistance with Respiratory Ventilation, Less than 24 Consecutive Hours, Continuous Positive Airway Pressure (ICD-10-PCS; 2018-09-12)
PROC: 5A09457 Assistance with Respiratory Ventilation, 24-96 Consecutive Hours, Continuous Positive Airway Pressure (ICD-10-PCS; 2018-09-13)
DX: A41.9 Sepsis, unspecified organism (principal); J18.9 Pneumonia, unspecified organism; N17.0 Acute kidney failure with tubular necrosis; N39.0 Urinary tract infection, site not specified; E46 Unspecified protein-calorie malnutrition; J44.0 Chronic obstructive pulmonary disease with (acute) lower respiratory infection; J96.11 Chronic respiratory failure with hypoxia; I12.9 Hypertensive chronic kidney disease with stage 1 through stage 4 chronic kidney disease, or unspecified chronic kidney disease; R65.20 Severe sepsis without septic shock; D64.9 Anemia, unspecified; F02.80 Dementia in other diseases classified elsewhere, unspecified severity, without behavioral disturbance, psychotic disturbance, mood disturbance, and anxiety; G30.9 Alzheimer's disease, unspecified; H91.90 Unspecified hearing loss, unspecified ear; I48.91 Unspecified atrial fibrillation; M81.0 Age-related osteoporosis without current pathological fracture; N18.9 Chronic kidney disease, unspecified; R13.12 Dysphagia, oropharyngeal phase; R62.7 Adult failure to thrive; F32.9 Major depressive disorder, single episode, unspecified; Y95 Nosocomial condition; Z51.5 Encounter for palliative care; Z66 Do not resuscitate; Z74.01 Bed confinement status; Z85.810 Personal history of malignant neoplasm of tongue; Z86.73 Personal history of transient ischemic attack (TIA), and cerebral infarction without residual deficits; Z99.81 Dependence on supplemental oxygen; Z82.49 Family history of ischemic heart disease and other diseases of the circulatory system; Z79.899 Other long term (current) drug therapy; Z68.29 Body mass index [BMI] 29.0-29.9, adult
CPT/HCPCS: 36415; 36600; 71045; 76770; 80048; 80053; 80069; 80202; 81001; 82550; 82803; 82948; 83605; 83735; 83874; 83880; 84100; 84484; 85025; 85027; 85610; 85730; 87040; 87077; 87088; 87186; 87205; 92526; 92610; 93005; 94640; 94660; 94664; A4218; G0378; J1100; J1650; J1956; J2020; J2060; J2185; J2543; J2920; J3370; J7030; J7120; J7512